=== PATIENT | female | born 1965 | race Hispanic/Latino ===

== ENCOUNTER 2017-03-07 20:25 | Emergency (ER) | payer MEDICAID ==
[2017-03-07 20:44] VITALS: BMI 22.3
[2017-03-07 20:52] VITALS: BP 138/94; RESP 16
[2017-03-07] MEDS ORDERED: Naproxen 550 mg Tab PO STA (21:24)
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
[2017-03-07 23:33] VITALS: PULSE 92; TEMP 98
[2017-03-07 23:34] VITALS: O2SAT 99
--- NOTE | 2017-03-08 09:20 | RAD ---
PROCEDURE: Bilateral Knee Radiographs. HISTORY: pain COMPARISON: None. FINDINGS: BONES: Right Knee: Normal. No fracture. Left Knee: Normal. No fracture. JOINTS: Right Knee: Normal. No osteoarthritis. Left knee: Normal. No osteoarthritis. SOFT TISSUES: Right Knee: Normal. Left Knee: Normal. JOINT EFFUSION: Right Knee: None. Left Knee: None. OTHER FINDINGS: None. IMPRESSION: Normal radiographs of the knees.
== END 2017-03-07 23:34 | disposition home or self-care (01) ==
LOC: ED 20:25 → MERGE 20:25 → ED 23:34
DX: S80.01XA Contusion of right knee, initial encounter (principal); S80.02XA Contusion of left knee, initial encounter; V19.3XXA Pedal cyclist (driver) (passenger) injured in unspecified nontraffic accident, initial encounter; Y93.55 Activity, bike riding; E03.9 Hypothyroidism, unspecified